=== PATIENT | male | born 1980 | race Caucasian/White ===

== ENCOUNTER 2018-08-03 07:06 | Emergency (ER) | payer SELFPAY ==
[2018-08-03] MEDS ORDERED: FLUORESCEIN SODIUM 1 MG/WRAP ONE (08:25)
[2018-08-03] MEDS ORDERED: TETRACAINE HCL 0.5% 4ML OPTH ONE (08:25)
--- NOTE | 2018-08-03 08:30 | EDPHYS ---
Physician Documentation [facility] Name: Reno Rios Age: 38 yrs Sex: Male : 1980 Arrival Date: 08/03/2018 Time: 07:12 Bed 17 Private MD: None, None ED Physician Damon Torres HPI: 08/03 08:10 This 38 yrs old Male presents to ER via Ambulatory with complaints of Eye cp Pain. 08:10 The patient is experiencing foreign body sensation, pain, to the left eye, caused by cp possible debris. Onset: The symptoms/episode began/occurred yesterday. 08:10 Associated signs and symptoms: Pertinent negatives: ear ache, fever, headache, runny cp nose, drainage from eye. 08:10 Patient does not utilize any form of vision correction. Severity of symptoms: in the cp emergency department the symptoms are unchanged despite home interventions. Historical: - Home Meds: 07:39 None [Active]; ls4 - PMHx: 07:39 Diabetes - NIDDM; Kidney stones; ls4 - PSHx: 07:39 None; ls4 - Immunization history:: Last tetanus immunization: unknown. - Social history:: Smoking status: Patient/guardian denies using tobacco. - Ebola Screening: : Patient negative for fever greater than or equal to 101.5 degrees Fahrenheit, and additional compatible Ebola Virus Disease symptoms Patient denies exposure to infectious person Patient denies travel to an Ebola-affected area in the 21 days before illness onset No symptoms or risks identified at this time. ROS: 08:15 Eyes: Positive for blurry vision, foreign body sensation, pain, Negative for discharge, cp vision loss. 08:15 Constitutional: Negative for body aches, chills, fever, poor PO intake. cp 08:15 ENT: Negative for drainage from ear(s), ear pain, sore throat, difficulty swallowing, difficulty handling secretions. 08:15 Cardiovascular: Negative for chest pain. 08:15 Respiratory: Negative for cough, shortness of breath, wheezing. 08:15 Abdomen/GI: Negative for abdominal pain, nausea, vomiting, and diarrhea. 08:15 Skin: Negative for cellulitis, rash. 08:15 Neuro: Negative for altered mental status, headache, weakness. 08:15 All other systems are negative. Exam: 08:10 Visual Acuity: I have reviewed the nursing documentation. cp 08:20 Constitutional: The patient appears in no acute distress, alert, awake, well developed, cp well nourished. 08:20 Head/Face: Normocephalic, atraumatic. cp 08:20 Eyes: Periorbital structures: appear normal, Pupils: equal, round, and reactive to light and accomodation, Extraocular movements: intact throughout, Conjunctiva: mild erythema of left eye. Corneas: abrasion, is not appreciated, foreign body, is not appreciated, a fluorescein strip employed to appreciate the findings, Sclera: no acute changes, Anterior chamber: normal, Lids and lashes: appear normal, bilaterally, Examination of the other eye reveals no obvious gross abnormality. 08:20 ENT: External ear(s): are unremarkable, Ear canal(s): are normal, clear, TM's: bulging, is not appreciated, bilaterally, dullness, bilaterally, erythema, is not appreciated, bilaterally, Nose: is normal, Mouth: Lips: moist, Oral mucosa: pink and intact, moist, Posterior pharynx: is normal, airway is patent, no erythema, no exudate. 08:20 Neck: ROM/movement: is normal, is supple, without pain, no range of motions limitations, no meningismus, no nuchal rigidity. 08:20 Chest/axilla: Inspection: normal. 08:20 Cardiovascular: Rate: normal. 08:20 Respiratory: the patient does not display signs of respiratory distress, Respirations: normal. 08:20 Skin: cellulitis, is not appreciated, no rash present. Vital Signs: 07:40 BP 115 / 81; Pulse 83; Resp 16; Temp 97.8; Pulse Ox 99% on R/A; Weight 111.13 kg; ls4 Height 6 ft. 3 in. (190.50 cm); Pain 5/10; 07:40 Body Mass Index 30.62 (111.13 kg, 190.50 cm) ls4 Visual Acuity: 08:03 Left Eye Visual acuity 20/20, ; Right Eye Visual acuity 20/15, ; Both Eyes Visual tw2 acuity 20/15; Without Lenses; MDM: 07:55 Patient medically screened. cp 08:10 Differential diagnosis: Corneal abrasion of left eye. Corneal ulcer of left eye. cp Foreign body in left eye. Acute iritis of left eye. Acute glaucoma in left eye. Infectious conjunctivitis in left eye. 08:29 Data reviewed: vital signs, nurses notes, and as a result, I will discharge patient. cp 08:30 Counseling: I had a detailed discussion with the patient and/or guardian regarding: the cp historical points, exam findings, and any diagnostic results supporting the discharge/admit diagnosis, the need for outpatient follow up, an opthalmologist, to return to the emergency department if symptoms worsen or persist or if there are any questions or concerns that arise at home. 08:30 Response to treatment: the patient's symptoms have mildly improved after treatment, and cp as a result, I will discharge patient. 08/03 08:05 Order name: Visual Acuity; Complete Time: 08:07 cp 08/03 08:05 Order name: Eye Tray; Complete Time: 08:07 cp 08/03 08:05 Order name: Fluoresene Opth strip; Complete Time: 08:07 cp Administered Medications: 08:11 Drug: Tetracaine Drops 0.5 % 2 drops Route: Ophthalmic; Site: left eye; tw2 08:33 Not Given (medication unavailable from pharmacy): Tobramycin Drops (0.3 %) 1 drops tw2 Ophthalmic once; instill drops in left eye 08:35 CANCELLED (Duplicate Order): Gentamicin Drops 0.3 % 2 drops Ophthalmic once; 1 drop in tw2 left eye every 4 hours 08:37 Drug: Gentamicin Drops 0.3 % 2 drops Route: Ophthalmic; Site: left eye; tw2 Disposition: 09:00 Chart complete. cp 14:33 Co-signature as Attending Physician, Damon Torres MD I agree with the assessment and kdr plan of care. Disposition: 08/03/18 08:30 Discharged to Home. Impression: Conjunctivitis - left eye. - Condition is Stable. - Prescriptions for Gentamicin 0.3 % Ophthalmic Drops - instill 1 drop by OPHTHALMIC route every 4 hours for 7 days instill 1 drop in left eye every 4 hours while awake for next 5-7 days; 1 bottle. - Medication Reconciliation Form, Thank You Letter, Antibiotic Education, Prescription Opioid Use, Work release form form. - Follow up: Digna Walters MD; When: 1 - 2 days; Reason: Worsening of condition. - Problem is new. - Symptoms have improved. Signatures: Damon Torres MD MD kdr Oral Hunt PA PA cp Sandra Mckinney RN RN tw2 Silva Singer RN RN ls4 Corrections: (The following items were deleted from the chart) 08:35 08:33 Gentamicin Drops 0.3 % 2 drops Ophthalmic once; 1 drop in left eye every 4 hours tw2 ordered. cp 08:45 08:30 08/03/2018 08:30 Discharged to Home. Impression: Conjunctivitis - left eye. tw2 Condition is Stable. Forms are Work release form, Medication Reconciliation Form, Thank You Letter, Antibiotic Education, Prescription Opioid Use. Follow up: Digna Walters; When: 1 - 2 days; Reason: Worsening of condition. Problem is new. Symptoms have improved. cp
--- NOTE | 2018-08-03 08:30 | ER ---
Nurse's Notes [facility] Name: Reno Rios Age: 38 yrs Sex: Male : 1980 Arrival Date: 08/03/2018 Time: 07:12 Bed 17 Private MD: None, None Diagnosis: Conjunctivitis-left eye Presentation: 08/03 07:34 Presenting complaint: Patient states: Left eye pain, while cleaning and moving boxes ls4 over head a lot of debris came down on him. irritated and put ZICAM in eye, but woke up this morning and still very irritated when I look to the right. Transition of care: patient was not received from another setting of care. Mechanism of Injury: moving boxes. The patient denies any loss of vision. Onset of symptoms was August 01, 2018. Risk Assessment: Do you want to hurt yourself or someone else? Patient reports no desire to harm self or others. Initial Sepsis Screen: Does the patient meet any 2 criteria? No. Patient's initial sepsis screen is negative. Does the patient have a suspected source of infection? No. Patient's initial sepsis screen is negative. Care prior to arrival: Medication(s) given: zicam. 07:34 Method Of Arrival: Ambulatory ls4 07:34 Acuity: SCOTTIE 4 ls4 Triage Assessment: 07:39 General: Appears uncomfortable, Behavior is calm, cooperative. Pain: Complains of pain ls4 in left eye Pain currently is 4 out of 10 on a pain scale. Quality of pain is described as irritated. EENT: Eyes mild redness . Sclera/Cornea. Historical: - Home Meds: 07:39 None [Active]; ls4 - PMHx: 07:39 Diabetes - NIDDM; Kidney stones; ls4 - PSHx: 07:39 None; ls4 - Immunization history:: Last tetanus immunization: unknown. - Social history:: Smoking status: Patient/guardian denies using tobacco. - Ebola Screening: : Patient negative for fever greater than or equal to 101.5 degrees Fahrenheit, and additional compatible Ebola Virus Disease symptoms Patient denies exposure to infectious person Patient denies travel to an Ebola-affected area in the 21 days before illness onset No symptoms or risks identified at this time. Screenin:47 Abuse screen: Denies threats or abuse. Nutritional screening: No deficits noted. tw2 Tuberculosis screening: No symptoms or risk factors identified. Fall Risk None identified. Assessment: 08:04 General: Appears in no apparent distress. Behavior is calm, cooperative, appropriate tw2 for age. Pain: Complains of pain in left eye. Neuro: Level of Consciousness is awake, alert, obeys commands, Oriented to person, place, time, situation. Cardiovascular: Patient's skin is warm and dry. Respiratory: Airway is patent Respiratory effort is even, unlabored, Respiratory pattern is regular, symmetrical. EENT: Reports "i feel that there is something in my left eye". 08:45 Reassessment: Patient appears in no apparent distress at this time. No changes from tw2 previously documented assessment. Patient and/or family updated on plan of care and expected duration. Pain level reassessed. Patient is alert, oriented x 3, equal unlabored respirations, skin warm/dry/pink. Vital Signs: 07:40 BP 115 / 81; Pulse 83; Resp 16; Temp 97.8; Pulse Ox 99% on R/A; Weight 111.13 kg; ls4 Height 6 ft. 3 in. (190.50 cm); Pain 5/10; 07:40 Body Mass Index 30.62 (111.13 kg, 190.50 cm) ls4 Visual Acuity: 08:03 Left Eye Visual acuity 20/20, ; Right Eye Visual acuity 20/15, ; Both Eyes Visual tw2 acuity 20/15; Without Lenses; ED Course: 07:12 Patient arrived in ED. mr 07:12 None, None is Private Physician. mr 07:34 Bed in low position. Call light in reach. Pulse ox on. NIBP on. tw2 07:37 Triage completed. ls4 07:42 Oral Hunt PA is PHCP. cp 07:42 Damon Torres MD is Attending Physician. cp 07:46 Sandra Mckinney, JOSE is Primary Nurse. tw2 07:46 Arm band placed on. tw2 08:29 Digna Walters MD is Referral Physician. cp 08:44 No provider procedures requiring assistance completed. Patient did not have IV access tw2 during this emergency room visit. Administered Medications: 08:11 Drug: Tetracaine Drops 0.5 % 2 drops Route: Ophthalmic; Site: left eye; tw2 08:33 Not Given (medication unavailable from pharmacy): Tobramycin Drops (0.3 %) 1 drops tw2 Ophthalmic once; instill drops in left eye 08:35 CANCELLED (Duplicate Order): Gentamicin Drops 0.3 % 2 drops Ophthalmic once; 1 drop in tw2 left eye every 4 hours 08:37 Drug: Gentamicin Drops 0.3 % 2 drops Route: Ophthalmic; Site: left eye; tw2 Outcome: 08:30 Discharge ordered by MD. encinas 08:44 Discharged to home ambulatory. tw 08:44 Condition: stable 08:44 Discharge instructions given to patient, Instructed on discharge instructions, follow up and referral plans. medication usage, Demonstrated understanding of instructions, follow-up care, medications, Prescriptions given X 1. 08:45 Patient left the ED. tw2 Signatures: Mckayla Brink Corey, PA PA cp Wise, Tara, RN RN tw2 Silva Singer RN RN ls4
[2018-08-03] MEDS ORDERED: GENTAMICIN 0.3% OPTH DROP 5ML ONE (08:49)
[2018-08-03 08:51] VITALS: BP 115/81; TEMP 97.8; O2SAT 99
== END 2018-08-03 08:45 | disposition home or self-care (01) ==
LOC: ER 07:06
DX: H10.9 Unspecified conjunctivitis (principal); E11.9 Type 2 diabetes mellitus without complications
CPT/HCPCS: 99283

== ENCOUNTER 2019-02-14 20:15 | Emergency (ER) | payer SELFPAY ==
[2019-02-14] MEDS ORDERED: CLINDAMYCIN 600MG/D5W 0 MG/0 ML BAG IV ONE (21:05)
[2019-02-14] MEDS ORDERED: MORPHINE 4 MG/ML SYR ONE (21:05)
[2019-02-14] MEDS ORDERED: ONDANSETRON 4 MG/2 ML VIAL ONE (21:05)
[2019-02-14] MEDS ORDERED: CLINDAMYCIN IV 150 MG/ML (4 mL) VIAL ONE (21:06)
[2019-02-14] MEDS ORDERED: ONDANSETRON 4 MG (ODT) TAB ONE (21:07)
--- NOTE | 2019-02-14 21:13 | ER ---
Nurse's Notes [facility] Name: Reno Rios Age: 38 yrs Sex: Male : 1980 Arrival Date: 02/14/2019 Time: 20:29 Bed 20 Private MD: Diagnosis: Dental abscess. Diabetes ( Non-complaint ) Presentation: 02/14 20:45 Presenting complaint: Patient states: Pain to right lower jaw radiating to right ear x lp1 1 week, worsening, working with clinic to set up appt for tooth removal; Completed 10 days of Amoxicillin prescription with no relief. Transition of care: patient was not received from another setting of care. Onset of symptoms was February 14, 2019. Risk Assessment: Do you want to hurt yourself or someone else? Patient reports no desire to harm self or others. Initial Sepsis Screen: Does the patient meet any 2 criteria? No. Patient's initial sepsis screen is negative. Does the patient have a suspected source of infection? No. Patient's initial sepsis screen is negative. Care prior to arrival: None. 20:45 Method Of Arrival: Ambulatory lp1 20:45 Acuity: SCOTTIE 4 lp1 Triage Assessment: 20:50 EENT: Reports pain in right jaw. lp1 Historical: - Allergies: 20:48 No Known Allergies; lp1 - Home Meds: 20:48 None [Active]; lp1 - PMHx: 20:48 Kidney stones; lp1 - PSHx: 20:48 None; lp1 - Immunization history:: Adult Immunizations up to date. - Social history:: Smoking status: Patient uses tobacco products, smokes one pack cigarettes per day. - Ebola Screening: : No symptoms or risks identified at this time. Screenin:49 Abuse screen: Denies threats or abuse. Denies injuries from another. Nutritional lp1 screening: No deficits noted. Tuberculosis screening: No symptoms or risk factors identified. Fall Risk None identified. Assessment: 20:48 General: Appears uncomfortable, Behavior is appropriate for age. Pain: Complains of lp1 pain in right jaw Pain currently is 10 out of 10 on a pain scale. Quality of pain is described as pressure, shooting. Neuro: No deficits noted. Cardiovascular: No deficits noted. Respiratory: No deficits noted. GI: No deficits noted. : No deficits noted. EENT: Oral mucosa is moist. Poor dentition noted. Dental caries noted in lower right first bicuspid (#28). Derm: Skin is pink, warm \T\ dry. Musculoskeletal: No deficits noted. 20:55 Reassessment: Patient states no history of diabetes diagnosis. lp1 20:58 Reassessment: Provider verbal order to cancel Ultram order, Order Morphine 4 mg IM, lp1 Zofran 4 mg IM. Vital Signs: 20:47 BP 138 / 93; Pulse 84; Resp 18; Temp 97.8; Pulse Ox 99% on R/A; Weight 111.13 kg (R); lp1 Height 6 ft. 3 in. (190.50 cm); Pain 10/10; 20:47 Body Mass Index 30.62 (111.13 kg, 190.50 cm) lp1 ED Course: 20:29 Patient arrived in ED. cf2 20:41 Fede Rivera MD is Attending Physician. pkl 20:45 Charis Oh, RN is Primary Nurse. lp1 20:46 Triage completed. lp1 20:47 Arm band placed on. lp1 20:49 Patient has correct armband on for positive identification. lp1 21:21 No provider procedures requiring assistance completed. Patient did not have IV access lp1 during this emergency room visit. Administered Medications: 20:59 CANCELLED (Physician Discretion): UltRAM 50 mg PO once; RASS on ADMIN: Combtv4, Very lp1 Agttd3, Agttd2, Rstlss1, AlertClm0, Drwsy-1, Lt Sdtn-2, Mod Sdtn-3, Dp Sdtn-4, UnArsble-5 21:12 Drug: Clindamycin 600 mg Route: IM; Site: left gluteus; lp1 21:22 Follow up: Response: No adverse reaction lp1 21:13 Drug: morphine 4 mg Route: IM; Site: right gluteus; lp1 21:22 Follow up: Response: No adverse reaction; Medication administered at discharge. lp1 21:13 Drug: Zofran 4 mg Route: PO; lp1 21:22 Follow up: Response: No adverse reaction lp1 21:14 CANCELLED (Physician Discretion): Zofran 4 mg IM once lp1 Outcome: 21:12 Discharge ordered by . pkl 21:21 Discharged to home ambulatory, with significant other. lp1 21:21 Condition: good 21:21 Discharge instructions given to patient, Instructed on discharge instructions, follow up and referral plans. medication usage, Demonstrated understanding of instructions, follow-up care, medications, Prescriptions given X 2. 21:24 Patient left the ED. lp1 Signatures: Fede Rivera MD MD pkl Pena, Laura, RN RN lp1 Adam Gamble cf2 Corrections: (The following items were deleted from the chart) 20:56 20:48 PMHx: Diabetes - NIDDM; lp1 lp1
--- NOTE | 2019-02-14 21:14 | EDPHYS ---
Physician Documentation [facility] Name: Reno Rios Age: 38 yrs Sex: Male : 1980 Arrival Date: 02/14/2019 Time: 20:29 Bed 20 Private MD: ED Physician Fede Rivera HPI: 02/14 20:56 This 38 yrs old Male presents to ER via Ambulatory with complaints of pkl Toothache, Headache, Jaw Pain, Facial Swelling. 20:56 The patient presents with pain. The problem is located in the lower right first pkl bicuspid (#28). Onset: The symptoms/episode began/occurred 1 week(s) ago. Saw Dentist 1 week ago and started on Amoxicillin without improvement.. Historical: - Allergies: 20:48 No Known Allergies; lp1 - Home Meds: 20:48 None [Active]; lp1 - PMHx: 20:48 Kidney stones; lp1 - PSHx: 20:48 None; lp1 - Immunization history:: Adult Immunizations up to date. - Social history:: Smoking status: Patient uses tobacco products, smokes one pack cigarettes per day. - Ebola Screening: : No symptoms or risks identified at this time. ROS: 20:56 Eyes: Negative for injury, pain, redness, and discharge. pkl 20:56 ENT: Positive for dental pain. 20:56 Neck: Negative for stiffness. 20:56 Cardiovascular: Negative for chest pain. 20:56 Respiratory: Negative for cough, shortness of breath. 20:56 Abdomen/GI: Negative for abdominal pain, nausea, vomiting, and diarrhea. 20:56 Back: Negative for acute changes. 20:56 : Negative for urinary symptoms. 20:56 MS/extremity: Negative for acute changes. 20:56 Skin: Negative for rash. 20:56 Neuro: Negative for altered mental status. Exam: 20:56 Head/face: Noted is tenderness, that is mild, of the right jaw. pkl 20:56 Eyes: Exam is negative for acute changes. 20:56 ENT: Dental exam: dental caries, that is moderate, gum swelling, that is mild, specifically in the lower right first bicuspid (#28). 20:56 Neck: Exam negative for acute changes. 20:56 Chest/axilla: Exam negative for acute changes. 20:56 Cardiovascular: Rate: normal, Rhythm: regular. 20:56 Respiratory: the patient does not display signs of respiratory distress, Respirations: normal, Breath sounds: are clear throughout. 20:56 Abdomen/GI: Exam negative for acute changes. 20:56 Back: Exam negative for acute changes. 20:56 : Exam negative for acute changes. 20:56 Musculoskeletal/extremity: Exam is negative for acute changes. 20:56 Skin: Exam negative for rash. 20:56 Neuro: Orientation: is normal, Mentation: is normal, Cranial nerves: grossly normal, Motor: is normal. Vital Signs: 20:47 BP 138 / 93; Pulse 84; Resp 18; Temp 97.8; Pulse Ox 99% on R/A; Weight 111.13 kg (R); lp1 Height 6 ft. 3 in. (190.50 cm); Pain 10/10; 20:47 Body Mass Index 30.62 (111.13 kg, 190.50 cm) lp1 MDM: 20:42 Patient medically screened. pkl 20:56 Data reviewed: vital signs, nurses notes. ED course: Patient non-compliant with his [facility] Diabetes control. Said Metformin is not helping. has not been on any Diabetes medications for more than 2 years. Advised to follow up with his PCP this week for his Diabetes management. Patient understood instructions. 02/14 21:06 Order name: Glucose, Ancillary Testing; Complete Time: 21:15 EDMS Administered Medications: 20:59 CANCELLED (Physician Discretion): UltRAM 50 mg PO once; RASS on ADMIN: Combtv4, Very lp1 Agttd3, Agttd2, Rstlss1, AlertClm0, Drwsy-1, Lt Sdtn-2, Mod Sdtn-3, Dp Sdtn-4, UnArsble-5 21:12 Drug: Clindamycin 600 mg Route: IM; Site: left gluteus; lp1 21:22 Follow up: Response: No adverse reaction lp1 21:13 Drug: morphine 4 mg Route: IM; Site: right gluteus; lp1 21:22 Follow up: Response: No adverse reaction; Medication administered at discharge. lp1 21:13 Drug: Zofran 4 mg Route: PO; lp1 21:22 Follow up: Response: No adverse reaction lp1 21:14 CANCELLED (Physician Discretion): Zofran 4 mg IM once lp1 Disposition: 02/14/19 21:12 Discharged to Home. Impression: Dental abscess. Diabetes ( Non-complaint ). - Condition is Stable. - Prescriptions for Clindamycin HCl 300 mg Oral Capsule - take 1 capsule by ORAL route every 6 hours for 7 days; 28 capsule. Ultram 50 mg Oral Tablet - take 1 tablet by ORAL route every 8 hours As needed; 20 tablet. - Medication Reconciliation Form, Thank You Letter, Antibiotic Education, Prescription Opioid Use form. - Follow up: Private Physician; When: 2 - 3 days; Reason: Re-evaluation by your physician. - Problem is new. - Symptoms are unchanged. Signatures: Fede Rivera MD MD pkl Charis Oh RN RN lp1 Corrections: (The following items were deleted from the chart) 20:56 20:48 PMHx: Diabetes - NIDDM; lp1 lp1 20:59 20:55 UltRAM 50 mg PO once; RASS on ADMIN: Combtv4, Very Agttd3, Agttd2, Rstlss1, lp1 AlertClm0, Drwsy-1, Lt Sdtn-2, Mod Sdtn-3, Dp Sdtn-4, UnArsble-5 ordered. pkl 20:59 20:59 UltRAM 50 mg PO once; RASS on ADMIN: Combtv4, Very Agttd3, Agttd2, Rstlss1, lp1 AlertClm0, Drwsy-1, Lt Sdtn-2, Mod Sdtn-3, Dp Sdtn-4, UnArsble-5 ordered. lp1 21:14 20:59 Zofran 4 mg IM once ordered. lp1 lp1 21:14 21:13 Zofran 4 mg IM once ordered. lp1 lp1 21:24 21:12 02/14/2019 21:12 Discharged to Home. Impression: Dental abscess. Diabetes ( lp1 Non-complaint ). Condition is Stable. Forms are Medication Reconciliation Form, Thank You Letter, Antibiotic Education, Prescription Opioid Use. Follow up: Private Physician; When: 2 - 3 days; Reason: Re-evaluation by your physician. Problem is new. Symptoms are unchanged. pkl
[2019-02-14 23:22] VITALS: BP 138/93; TEMP 97.8; O2SAT 99
== END 2019-02-14 21:24 | disposition home or self-care (01) ==
LOC: ER 20:15
DX: K04.7 Periapical abscess without sinus (principal); Z91.19 Patient's noncompliance with other medical treatment and regimen; F17.210 Nicotine dependence, cigarettes, uncomplicated
CPT/HCPCS: 82947; 96372; 99283; J2405; S0077

== ENCOUNTER → 2023-04-28 | Emergency (ER) | payer SELFPAY ==
[~2023-04-28] MED LIST: FENTANYL CITR 100 MCG/2 ML ONE; MORPHINE 4 MG/ML SYR ONE; NA CHLORIDE 0.9% 1,000 ML ONE; NA CHLORIDE 0.9% 100 ML ONE; ONDANSETRON 4 MG/2 ML VIAL ONE; PIPERACIL/TAZO 3.375 GM VIAL IV ONE
--- OUTSIDE RECORDS SUMMARY | 2023-04-28 13:56 | XMS REPORT | Continuity of Care Document ---
Author Name Unknown Address [address] [place] [address] [facility] Address [address] [place] [address] Care Team Providers Care Sap Fico Architect Name Role Phone Unavailable Unavailable Unavailable Encounters Start Date/Time End Date/Time Encounter Type Admission Type Attending Clinicians Care Facility Care Department Encounter ID Source 2023-03-13 18:00:42 Outpatient OSIRIS NEWELL [id number] [facility]
[2023-04-28 14:57] LABS: Specific Gravity > 1.030 (1.005-1.030); Urine Blood Negative (Negative); Urine Clarity Clear (Clear); Urine Color Yellow (Yellow); Urine Glucose 4+ (Over) (Negative); Urine Protein NEGATIVE (Negative); Urine Urobilinogen Normal (Normal)
[2023-04-28 14:59] LABS: Urine Bilirubin 1+ (Negative)
[2023-04-28 15:15] LABS: Albumin 2.7 g/dL (3.4-5.0); Albumin/Globulin Ratio 0.7 (1.1-1.8); Anion Gap 9.6 mEq/L (5.0-15.0); Bilirubin Direct 6.3 mg/dL (0-0.2); Bilirubin Total 7.3 mg/dL (0.2-1.0); Globulin 4.1 g/dL (2.3-3.5); Potassium 3.6 mEq/L (3.5-5.1); Protein, Total 6.8 g/dL (6.4-8.2)
--- NOTE | 2023-04-28 15:37 | RAD REPORT ---
EXAM DESCRIPTION: CTAbdomen Pelvis W Contrast - 04/28/2023 3:27 pm CLINICAL HISTORY: Abdominal pain. abdnormal labs COMPARISON: Abdomen Pelvis W Contrast dated 04/02/2016; Abdomen Pelvis W Contrast dated 6 TECHNIQUE: Biphasic CT imaging of the abdomen and pelvis was performed with 100 ml non-ionic IV cont rast. All CT scans are performed using dose optimization technique as appropriate and may include automated exposure control or mA/KV adjustment according to patient size. FINDINGS: The lung bases are clear. The liver is mildly enlarged with diffuse fatty infiltration. Cholelithiasis. Spleen, pancreas, adren al glands and kidneys are within normal limits. No bowel obstruction, free air, free fluid or abscess. Mild nonspecific fluid distended small bowel. Several small bowel loops in the left upper quadrant are mildly thickened. The appendix is normal. N o evidence of significant lymphadenopathy. No suspicious bony findings. IMPRESSION: Diffuse fatty liver with mild hepatomegaly. Cholelithiasis. Fluid distention is seen throughout the small intestine. Several loops of small bowel are mildly thic kened in the left upper quadrant. This is nonspecific but can be seen in gastrointestinal functional disorders.
[2023-04-28 15:45] LABS: Absolute Basophils 0.1 K/uL (0-0.5); Absolute Eosinophils 0.2 K/uL (0-0.5); Absolute Lymphocytes (CBC) 1.3 K/uL (0.7-4.9); Basophils % 1.6 % (0-1.3); Eosinophils % 3.8 % (0-4.4); Hematocrit 42.4 % (39.6-49.0); Hemoglobin 14.1 g/dL (13.6-17.9); Lymphocytes % 19.9 % (15.3-44.8); MCV 70.2 fL (80-100); MPV 8.9 fL (7.6-11.3); Platelets 293 thou/uL (152-406); RBC Red Blood Cell Count 6.05 M/uL (4.33-5.43)
[2023-04-28 17:22] LABS: Platelet Estimate ADEQ; White Blood Cell Scan OK (OK)
[2023-04-28 17:23] LABS: Blood Morphology Comment NOTED (NOT SEEN)
[2023-04-28 17:25] LABS: Anisocytosis 2+; Poikilocytosis 1+; Target Cells 1+
--- NOTE | 2023-04-28 18:39 | RAD REPORT ---
EXAM DESCRIPTION: US - Abdomen Exam Limited - 04/28/2023 6:10 pm CLINICAL HISTORY: pain Abdominal pain COMPARISON: No comparisons FINDINGS: The gallbladder demonstrates multiple shadowing gallstones. No pericholecystic fluid or ga llbladder wall thickening. The common bile duct is normal measuring 2 mm. The liver demonstrates no findings of intrahepatic biliary dilatation. IMPRESSION: Cholelithiasis.
--- NOTE | 2023-04-28 19:27 | EDPHYS ---
Physician Documentation [facility] Name: Reno Rios Age: 43 yrs Sex: Male : 1980 Arrival Date: 04/28/2023 Time: 13:54 Bed 5 Private MD: Michaela Victoria ED Physician Neftali Santo HPI: 04/27 15:30 This 43 yrs old Male presents to ER via Ambulatory with complaints of Abnormal Lab rt Results. 15:30 Patient presents to the ED with reported abnormalities on LFTs as well as kidney rt function on outpatient labs. Has been increasingly jaundiced over the past several days. Reports dark urine, reportedly pale stools. Does report pain to the lower back. Denies any overt abdominal pain. Denies other acute complaints at this time, symptoms are moderate in severity, no other aggravating or alleviating factors.. Historical: - Allergies: 14:12 No Known Allergies; ld1 - Home Meds: 14:12 None [Active]; ld1 - PMHx: 14:12 Kidney stones; Diabetes mellitus; ld1 - PSHx: 14:12 None; ld1 - Immunization history:: Adult Immunizations up to date. - Social history:: Smoking status: Reported history of juuling and/or vaping. Patient/guardian denies using alcohol. - Family history:: not pertinent. ROS: 15:30 Constitutional: Negative for fever, chills, and weight loss, Cardiovascular: Negative rt for chest pain, palpitations, and edema, Respiratory: Negative for shortness of breath, cough, wheezing, and pleuritic chest pain, Abdomen/GI: Negative for abdominal pain, nausea, vomiting, diarrhea, and constipation, MS/Extremity: Negative for injury and deformity, Neuro: Negative for headache, weakness, numbness, tingling, and seizure, Psych: Negative for depression, anxiety, suicide ideation, homicidal ideation, and hallucinations, 15:30 Skin: Positive for jaundice, Negative for cellulitis, Exam: 15:30 Constitutional: This is a well developed, well nourished patient who is awake, alert, rt and in no acute distress. Head/Face: Normocephalic, atraumatic. Chest/axilla: Normal chest wall appearance and motion. Nontender with no deformity. No lesions are appreciated. Cardiovascular: Regular rate and rhythm with a normal S1 and S2. No gallops, murmurs, or rubs. Normal PMI, no JVD. No pulse deficits. Respiratory: Lungs have equal breath sounds bilaterally, clear to auscultation and percussion. No rales, rhonchi or wheezes noted. No increased work of breathing, no retractions or nasal flaring. Abdomen/GI: Soft, non-tender, with normal bowel sounds. No distension or tympany. No guarding or rebound. No evidence of tenderness throughout. Neuro: Awake and alert, GCS 15, oriented to person, place, time, and situation. Cranial nerves II-XII grossly intact. Motor strength 5/5 in all extremities. Sensory grossly intact. Cerebellar exam normal. Normal gait. 15:30 Eyes: Scleral icterus noted. 15:30 Skin: Mild jaundice noted. Vital Signs: 14:11 BP 154 / 85; Pulse 92; Resp 14; Temp 98.3(TE); Pulse Ox 99% on R/A; Weight 100.7 kg; ld1 Height 6 ft. 3 in. ; Pain 9/10; 15:30 BP 157 / 97; Pulse 84; Resp 18; Pulse Ox 100% ; Pain 3/10; nj1 16:46 BP 158 / 93; Pulse 83; Resp 16; Pulse Ox 100% on R/A; nj1 18:27 BP 160 / 95; Pulse 83; Resp 16; Pulse Ox 100% ; Pain 7/10; nj1 19:00 BP 159 / 98; Pulse 91; Resp 16; Pulse Ox 100% on R/A; km8 21:48 BP 158 / 97; Pulse 97; Resp 15; Temp 98.4(TE); Pulse Ox 99% on R/A; Pain 9/10; tm6 14:11 Body Mass Index 27.75 (100.70 kg, 190.5 cm) ld1 14:11 Pain Scale: Adult ld1 15:30 Pain Scale: Adult nj1 18:27 Pain Scale: Adult nj1 21:48 Pain Scale: Adult tm6 MDM: 14:11 Patient medically screened. rt 20:21 Differential Diagnosis Hyperbilirubinemia, choledocholithiasis, cholecystitis. Data rt reviewed: vital signs, nurses notes, lab test result(s), radiologic studies. Management of patient was discussed with the following: Dish Up Person: Discussed with Dr. Wu with general surgery, recommends admission.. I considered the following discharge prescriptions or medication management in the emergency department Medications were administered in the Emergency Department. See MAR. Independent interpretation of the following test(s) in the Emergency Department CT Scan: My interpretation is No bowel obstruction syndrome interpretation of CT scan images. Care significantly affected by the following chronic conditions: Diabetes. Counseling: I had a detailed discussion with the patient and/or guardian regarding the historical points, exam findings, and any diagnostic results supporting the discharge/admit diagnosis, lab results, radiology results, the need to transfer to another facility. Response to treatment: the patient's symptoms have mildly improved after treatment. 04/27 14:57 Order name: Urinalysis w/ reflexes; Complete Time: 15:19 EDMS 04/27 15:15 Order name: Basic Metabolic Panel; Complete Time: 15:19 EDMS 04/27 15:15 Order name: Liver (Hepatic) Function; Complete Time: 15:19 EDMS 04/27 15:15 Order name: Magnesium; Complete Time: 15:19 EDMS 04/27 15:15 Order name: Lipase; Complete Time: 15:19 EDMS 04/27 15:45 Order name: CBC with Automated Diff; Complete Time: 17:29 EDMS 04/27 17:25 Order name: CBC Smear Scan; Complete Time: 17:29 EDMS 04/27 14:25 Order name: CT Abd/Pelvis - IV Contrast Only rt 04/27 15:37 Order name: CT; Complete Time: 16:06 EDMS 04/27 16:07 Order name: US Abdomen Limited rt 04/27 18:08 Order name: Abdomen Exam Limited; Complete Time: 18:45 EDMS 04/27 14:25 Order name: IV Saline Lock; Complete Time: 14:53 rt 04/27 14:25 Order name: Labs collected and sent; Complete Time: 14:53 rt Administered Medications: 14:45 Drug: NS 0.9% IV 1000 ml IV at 1 bolus Per protocol; 1000 mL bolus Route: IV; Rate: 1 nj1 bolus; Site: right antecubital; 19:49 Follow up: IV Status: Completed infusion; IV Intake: 1000ml km8 14:45 Drug: Ondansetron IVP 4 mg IVP once; over 2 minutes Route: IVP; Site: right antecubital;nj1 19:49 Follow up: Response: No adverse reaction km8 14:47 Drug: morphine IVP or IV 4 mg IVP once over 4 mins Route: IVP; Infused Over: 4 mins; in1 Site: right antecubital; 19:49 Follow up: Response: No adverse reaction 8 16:42 Drug: morphine IVP or IV 4 mg IVP once over 4 mins Route: IVP; Infused Over: 4 mins; [facility] Site: right antecubital; 18:26 Follow up: Response: No adverse reaction; Pain is decreased [facility] 18:50 Drug: morphine IVP or IV 4 mg IVP once over 4 mins Route: IVP; Infused Over: 4 mins; [facility] Site: right antecubital; 19:48 Follow up: Response: No adverse reaction; Pain is decreased [facility] 19:48 Drug: Piperacillin-Tazobactam IVPB 3.375 grams IVPB once over 60 mins; (mix in NS 100 km8 mL) Route: IVPB; Infused Over: 60 mins; Site: right antecubital; 21:29 Drug: fentaNYL (PF) IVP 50 mcg IVP once Route: IVP; Site: right antecubital; tm6 21:30 Drug: Ondansetron IVP 4 mg IVP once; over 2 minutes Route: IVP; Site: right antecubital;tm6 21:48 Drug: fentaNYL (PF) IVP 50 mcg IVP once Route: IVP; Site: right antecubital; tm6 Disposition Summary: 04/28/23 19:27 Transfer Ordered Notes: Transfer Location: [facility] rt Reason: Higher level of care rt Condition: Stable rt Problem: new rt Symptoms: are unchanged rt Accepting Physician: (04/28/23 21:51) tm6 Diagnosis - Cholecystitis rt - Hyperbilirubinemia rt Forms: - Medication Reconciliation Form rt - SBAR form rt Signatures: Dispatcher [employer] Katlyn Oviedo RN RN ld1 Neftali Santo MD MD rt Prieto Ariza MD MD sp4 Jania Zaidi RN RN nj1 Zoe Shetty RN RN km8 Violet Estrada RN RN tm6 Corrections: (The following items were deleted from the chart) 18:11 17:10 CBC+H.LAB.BRZ ordered. EDMS EDMS 18:11 17:10 BASIC METABOLIC PANEL+C.LAB.BRZ ordered. EDMS EDMS 18:12 17:10 LIPASE+C.LAB.BRZ ordered. EDMS EDMS 18:12 17:10 Urinalysis+U.LAB.BRZ ordered. EDMS EDMS 18:12 17:10 HEPATIC FUNCTION+C.LAB.BRZ ordered. EDMS EDMS 18:12 17:10 MAGNESIUM+C.LAB.BRZ ordered. EDMS EDMS 21:51 19:27 Dr. youssef tm6
--- NOTE | 2023-04-28 19:27 | ER ---
Nurse's Notes [facility] Name: Reno Rios Age: 43 yrs Sex: Male : 1980 Arrival Date: 04/28/2023 Time: 13:54 Bed 5 Private MD: Michaela Victoria Diagnosis: Cholecystitis;Hyperbilirubinemia Presentation: 04/27 14:11 Chief complaint: Patient states: Came in due to elevated liver enzymes and BGL. Flank ld1 pain, nausea X 1 week. 20lb weight loss since March. Coronavirus screen: At this time, the client does not indicate any symptoms associated with coronavirus-19. Ebola Screen: No symptoms or risks identified at this time. Initial Sepsis Screen: Does the patient meet any 2 criteria? No. Patient's initial sepsis screen is negative. Does the patient have a suspected source of infection? No. Patient's initial sepsis screen is negative. Risk Assessment: Do you want to hurt yourself or someone else? Patient reports no desire to harm self or others. Onset of symptoms was April 28, 2023. 14:11 Method Of Arrival: Ambulatory ld1 14:11 Acuity: SCOTTIE 3 ld1 Triage Assessment: 14:12 General: Appears in no apparent distress. comfortable, Behavior is cooperative, ld1 anxious. Pain:. Pain: Complains of pain in low back area Pain does not radiate. Pain currently is 9 out of 10 on a pain scale. Quality of pain is described as throbbing. EENT: No signs and/or symptoms were reported regarding the EENT system. Neuro: Level of Consciousness is awake, alert, obeys commands, Oriented to person, place, time, situation. Cardiovascular: Capillary refill < 3 seconds Patient's skin is warm and dry. Respiratory: Airway is patent Respiratory effort is even, unlabored. GI: Abdomen is round non-distended, Reports nausea. : Reports pain in bilateral flank(s). Historical: - Allergies: 14:12 No Known Allergies; ld1 - Home Meds: 14:12 None [Active]; ld1 - PMHx: 14:12 Kidney stones; Diabetes mellitus; ld1 - PSHx: 14:12 None; ld1 - Immunization history:: Adult Immunizations up to date. - Social history:: Smoking status: Reported history of juuling and/or vaping. Patient/guardian denies using alcohol. - Family history:: not pertinent. Screenin:56 [facility] ED Fall Risk Assessment (Adult) Score/Fall Risk Level 0 - 2 = Low Risk nj1 Oriented to surroundings, Maintained a safe environment, Hourly rounding (assess needs \T\ fall precautionary measures) done. Abuse screen: Denies threats or abuse. Denies injuries from another. Nutritional screening: No deficits noted. Tuberculosis screening: No symptoms or risk factors identified. Assessment: 14:40 General: Appears in no apparent distress. comfortable, Behavior is calm, cooperative, nj1 appropriate for age. Pain: Complains of pain in flank, left Pain radiates to back Pain currently is 8 out of 10 on a pain scale. 14:40 Pain: Pain began 4 days ago. Neuro: Level of Consciousness is awake, alert, obeys nj1 commands, Oriented to person, place, time, situation. Cardiovascular: Patient's skin is warm and dry. Respiratory: Airway is patent Respiratory effort is even, unlabored. EENT: Sclera/Cornea Yellowish. Derm: Skin is. Derm: Skin is jaundiced. 15:30 Reassessment: Patient appears in no apparent distress at this time. Patient and/or nj1 family updated on plan of care and expected duration. Pain level reassessed. Patient is alert, oriented x 3, equal unlabored respirations, skin warm/dry/pink. 15:50 Reassessment: Ice chips given to patient, ok by Dr Santo. nj1 16:45 Reassessment: Patient appears in no apparent distress at this time. Patient and/or nj1 family updated on plan of care and expected duration. Pain level reassessed. Patient is alert, oriented x 3, equal unlabored respirations, skin warm/dry/pink. 18:27 Reassessment: Patient appears in no apparent distress at this time. Patient and/or nj1 family updated on plan of care and expected duration. Pain level reassessed. Patient is alert, oriented x 3, equal unlabored respirations, skin warm/dry/pink. 19:15 Reassessment: Patient appears in no apparent distress at this time. Patient and/or km8 family updated on plan of care and expected duration. Pain level reassessed. General: Appears comfortable, Behavior is calm, cooperative, appropriate for age. Neuro: Level of Consciousness is awake, alert, obeys commands, Oriented to person, place, time, situation. Cardiovascular: Denies chest pain, shortness of breath, Patient's skin is warm and dry. Respiratory: Airway is patent Respiratory effort is even, unlabored, Respiratory pattern is regular, symmetrical. 21:18 Reassessment: called report to RN at [facility]. km8 21:48 Reassessment: Patient appears in no apparent distress at this time. Patient and/or tm6 family updated on plan of care and expected duration. Pain level reassessed. Patient is alert, oriented x 3, equal unlabored respirations, skin warm/dry/pink. Vital Signs: 14:11 BP 154 / 85; Pulse 92; Resp 14; Temp 98.3(TE); Pulse Ox 99% on R/A; Weight 100.7 kg; ld1 Height 6 ft. 3 in. ; Pain 9/10; 15:30 BP 157 / 97; Pulse 84; Resp 18; Pulse Ox 100% ; Pain 3/10; nj1 16:46 BP 158 / 93; Pulse 83; Resp 16; Pulse Ox 100% on R/A; nj1 18:27 BP 160 / 95; Pulse 83; Resp 16; Pulse Ox 100% ; Pain 7/10; nj1 19:00 BP 159 / 98; Pulse 91; Resp 16; Pulse Ox 100% on R/A; km8 21:48 BP 158 / 97; Pulse 97; Resp 15; Temp 98.4(TE); Pulse Ox 99% on R/A; Pain 9/10; tm6 14:11 Body Mass Index 27.75 (100.70 kg, 190.5 cm) ld1 14:11 Pain Scale: Adult ld1 15:30 Pain Scale: Adult nj1 18:27 Pain Scale: Adult nj1 21:48 Pain Scale: Adult tm6 ED Course: 13:55 Patient arrived in ED. mr 13:56 Michaela Victoria is Private Physician. mr 13:59 Neftali Santo MD is Attending Physician. rt 14:11 Jania Zaidi, JOSE is Primary Nurse. nj1 14:12 Triage completed. ld1 14:12 Arm band placed on right wrist. Patient placed in an exam room, on a stretcher, on ld1 senior clinical study manager, on pulse oximetry. 14:40 Patient has correct armband on for positive identification. Bed in low position. Call nj1 light in reach. Adult w/ patient. 14:40 Provided Education on: call light, fall precautions. wv1 18:12 Abdomen Exam Limited In Process Unspecified. EDMS 19:07 Report given to Zoe RN and Violet RN. [facility] 19:15 Zoe Shetty, RN is Primary Nurse. [facility] 19:[address] [facility], spoke with Kamla. 21:05 EMS stated they couldn't be here till 2229, will call another transport service. 21:05 [facility] accepted for transport with an ETA \T\ 2134. 21:50 No provider procedures requiring assistance completed. Inserted saline lock: 22 gauge tm6 in right antecubital area, using aseptic technique. Patient transferred, IV remains in place. Administered Medications: 14:45 Drug: NS 0.9% IV 1000 ml IV at 1 bolus Per protocol; 1000 mL bolus Route: IV; Rate: 1 nj1 bolus; Site: right antecubital; 19:49 Follow up: IV Status: Completed infusion; IV Intake: 1000ml [facility] 14:45 Drug: Ondansetron IVP 4 mg IVP once; over 2 minutes Route: IVP; Site: right antecubital;nj1 19:49 Follow up: Response: No adverse reaction [facility] 14:47 Drug: morphine IVP or IV 4 mg IVP once over 4 mins Route: IVP; Infused Over: 4 mins; [facility] Site: right antecubital; 19:49 Follow up: Response: No adverse reaction [facility] 16:42 Drug: morphine IVP or IV 4 mg IVP once over 4 mins Route: IVP; Infused Over: 4 mins; [facility] Site: right antecubital; 18:26 Follow up: Response: No adverse reaction; Pain is decreased [facility] 18:50 Drug: morphine IVP or IV 4 mg IVP once over 4 mins Route: IVP; Infused Over: 4 mins; [facility] Site: right antecubital; 19:48 Follow up: Response: No adverse reaction; Pain is decreased [facility] 19:48 Drug: Piperacillin-Tazobactam IVPB 3.375 grams IVPB once over 60 mins; (mix in NS 100 km8 mL) Route: IVPB; Infused Over: 60 mins; Site: right antecubital; 21:29 Drug: fentaNYL (PF) IVP 50 mcg IVP once Route: IVP; Site: right antecubital; tm6 21:30 Drug: Ondansetron IVP 4 mg IVP once; over 2 minutes Route: IVP; Site: right antecubital;tm6 21:48 Drug: fentaNYL (PF) IVP 50 mcg IVP once Route: IVP; Site: right antecubital; tm6 Medication: 21:50 VIS not applicable for this client. tm6 Intake: 19:49 IV: 1000ml; Total: 1000ml. km8 Outcome: 19:27 ER care complete, transfer ordered by . rt 21:50 Transferred by ground EMS to [facility], tm6 21:50 Condition: stable 21:50 Instructed on the need for transfer, Demonstrated understanding of instructions, 21:51 Patient left the ED. tm6 Signatures: Dispatcher [employer] EDMS Mckayla Brink, Luis Reg mr Katlyn Benitez, RN RN ld1 Katherin Lockwood Ryan, MD MD rt Jania Zaidi RN RN nj1 Zoe Shetty RN RN km8 Violet Estrada RN RN tm6
[2023-04-28 22:52] VITALS: BP 158/97; TEMP 98.4; O2SAT 99
== END ==
LOC: ER 13:54
DX: K81.9 Cholecystitis, unspecified (principal); E80.6 Other disorders of bilirubin metabolism
CPT/HCPCS: 36415; 74177; 76705; 80048; 80076; 81003; 83690; 83735; 85025; J2405; J2543; J3010; J7030; Q9967

== ENCOUNTER 2023-08-26 18:23 | Emergency (ER) | payer SELFPAY ==
--- NOTE | 2023-08-26 19:06 | ER ---
Nurse's Notes [facility] Name: Reno Rios Age: 43 yrs Sex: Male : 1980 Arrival Date: 08/26/2023 Time: 18:23 Bed DX3 Private MD: Diagnosis: Dental caries, unspecified;Cellulitis of face Presentation: 08/25 18:58 Chief complaint: Patient states: Pt states he has broken tooth on left lower jaw since tl4 Thursday. Pain and swelling is getting worse. Coronavirus screen: At this time, the client does not indicate any symptoms associated with coronavirus-19. Ebola Screen: No symptoms or risks identified at this time. Initial Sepsis Screen: Does the patient meet any 2 criteria? No. Patient's initial sepsis screen is negative. Does the patient have a suspected source of infection? No. Patient's initial sepsis screen is negative. Risk Assessment: Do you want to hurt yourself or someone else? Patient reports no desire to harm self or others. Onset of symptoms was August 22, 2023. 18:58 Method Of Arrival: Ambulatory tl4 18:58 Acuity: SCOTTIE 4 tl4 Triage Assessment: 19:00 General: Appears uncomfortable, Behavior is calm, cooperative. Pain: Complains of pain tl4 in mouth. EENT: Reports pain in left cheek. Neuro: Level of Consciousness is awake, alert, obeys commands, Oriented to person, place, time, situation. Cardiovascular: Capillary refill < 3 seconds Patient's skin is warm and dry. Respiratory: Airway is patent Respiratory effort is even, unlabored, Respiratory pattern is regular, symmetrical. GI: No signs and/or symptoms were reported involving the gastrointestinal system. : No signs and/or symptoms were reported regarding the genitourinary system. Derm: No signs and/or symptoms reported regarding the dermatologic system. Musculoskeletal: No signs and/or symptoms reported regarding the musculoskeletal system. Historical: - Allergies: 19:01 No Known Allergies; tl4 - PMHx: 19:01 diabetes mellitus; Kidney stones; tl4 - PSHx: 19:01 Cholecystectomy; tl4 - Immunization history:: Adult Immunizations unknown. - Infectious Disease History:: Denies. - Social history:: Smoking status: Patient denies any tobacco usage or history of. - Family history:: not pertinent. - Hospitalizations: : No recent hospitalization is reported. Screenin:24 [facility] ED Fall Risk Assessment (Adult) History of falling in the last 3 months, bm8 including since admission No falls in past 3 months (0 pts) Confusion or Disorientation No (0 pts) Intoxicated or Sedated No (0 pts) Impaired Gait No (0 pts) Mobility Assist Device Used No (0 pt) Altered Elimination No (0 pt) Score/Fall Risk Level 0 - 2 = Low Risk Oriented to surroundings, Maintained a safe environment, Educated pt \T\ family on fall prevention, incl call for assistance when getting out of bed, Assessed \T\ reinforced patient's understanding of fall precautions, Hourly rounding (assess needs \T\ fall precautionary measures) done. Abuse screen: Denies threats or abuse. Nutritional screening: No deficits noted. Tuberculosis screening: No symptoms or risk factors identified. Assessment: 20:24 Pain: Complains of pain in left cheek and mouth Pain radiates to face. Neuro: No bm8 deficits noted. Level of Consciousness is awake, alert, obeys commands, Oriented to person, place, time, situation, Appropriate for age. Musculoskeletal: swelling to left cheek. Vital Signs: 18:58 BP 146 / 82; Pulse 103; Resp 18; Temp 97(TE); Pulse Ox 100% on R/A; Weight 90.72 kg; tl4 Height 6 ft. 3 in. ; Pain 10/10; 20:24 BP 140 / 80; Pulse 100; Resp 20; Temp 97; Pulse Ox 100% ; Pain 6/10; bm8 18:58 Body Mass Index 25.00 (90.72 kg, 190.5 cm) tl4 18:58 Pain Scale: Adult tl4 20:24 Pain Scale: Adult bm8 [place] Coma Score: 20:24 Eye Response: spontaneous(4). Motor Response: obeys commands(6). Verbal Response: bm8 oriented(5). Total: 15. ED Course: 18:26 Patient arrived in ED. im 18:39 Lloyd Lemons MD is Attending Physician. rn 19:00 Triage completed. tl4 19:03 Arm band placed on right wrist. tl4 20:23 Gabe Sumner, RN is Primary Nurse. bm8 20:24 Patient has correct armband on for positive identification. Provided Education on: post bm8 er care. Client placed on continuous cardiac and pulse oximetry monitoring. NIBP monitoring applied. Pulse ox on. NIBP on. Verbal reassurance given. 20:24 No provider procedures requiring assistance completed. Patient did not have IV access bm8 during this emergency room visit. Administered Medications: 20:00 Drug: Ketorolac IM 30 mg IM once Route: IM; Site: left deltoid; bm8 20:27 Follow up: Response: No adverse reaction bm8 20:00 Drug: HYDROcodone-acetaminophen PO 5 mg-325 mg 1 tabs PO once Route: PO; bm8 20:27 Follow up: Response: No adverse reaction bm8 20:00 Drug: Clindamycin PO 300 mg PO once Route: PO; bm8 20:26 Follow up: Response: No adverse reaction bm8 Medication: 20:24 VIS not applicable for this client. bm8 Outcome: 19:05 Discharge ordered by . rn 20:24 Discharged to home ambulatory, bm8 20:24 Condition: stable 20:24 Discharge instructions given to patient, Instructed on discharge instructions, follow up and referral plans. no drinking with medication, no driving heavy equipment, medication usage, safety practices, Demonstrated understanding of instructions, follow-up care, medications, Prescriptions given X 3, 20:27 Patient left the ED. bm8 Signatures: Lloyd Lemons MD MD rn Mendoza, Itzel im Logdahl, Toni, RN RN tl4 Gabe Sumner RN RN bm8 Corrections: (The following items were deleted from the chart) 19:03 18:58 BP 146 / 82; Pulse 103bpm; Resp 18bpm; Pulse Ox 100% RA; Temp 97F Temporal; Pain tl4 11/25, Adult; tl4
--- NOTE | 2023-08-26 19:06 | EDPHYS ---
Physician Documentation [facility] Name: Reno Rios Age: 43 yrs Sex: Male : 1980 Arrival Date: 08/26/2023 Time: 18:23 Bed DX3 Private MD: ED Physician Lloyd Lemons HPI: 08/25 19:04 This 43 yrs old Male presents to ER via Ambulatory with complaints of Toothache. rn 19:04 The patient presents with pain, swelling. Onset: The symptoms/episode began/occurred 2 rn day(s) ago. Modifying factors: The symptoms are alleviated by nothing, the symptoms are aggravated by chewing. Severity of symptoms: At their worst the symptoms were mild, in the emergency department the symptoms are unchanged. The patient has not experienced similar symptoms in the past. Patient reports dental pain for a while now but last few days noticed swelling to the left jaw and pain has increased. No fever or chills. Able to eat.. Historical: - Allergies: 19:01 No Known Allergies; tl4 - PMHx: 19:01 diabetes mellitus; Kidney stones; tl4 - PSHx: 19:01 Cholecystectomy; tl4 - Immunization history:: Adult Immunizations unknown. - Infectious Disease History:: Denies. - Social history:: Smoking status: Patient denies any tobacco usage or history of. - Family history:: not pertinent. - Hospitalizations: : No recent hospitalization is reported. ROS: 19:04 Constitutional: Negative for fever, chills, and weight loss, ENT: Positive for dental rn pain and swelling Exam: 19:04 Constitutional: This is a well developed, well nourished patient who is awake, alert, rn and in no acute distress. ENT: Poor dentition, left lower teeth along mandible with multiple dental caries, no obvious abscess, mild swelling to buccal space without fluctuance or abscess. Vital Signs: 18:58 BP 146 / 82; Pulse 103; Resp 18; Temp 97(TE); Pulse Ox 100% on R/A; Weight 90.72 kg; tl4 Height 6 ft. 3 in. ; Pain 10/10; 20:24 BP 140 / 80; Pulse 100; Resp 20; Temp 97; Pulse Ox 100% ; Pain 6/10; bm8 18:58 Body Mass Index 25.00 (90.72 kg, 190.5 cm) tl4 18:58 Pain Scale: Adult tl4 20:24 Pain Scale: Adult bm8 [place] Coma Score: 20:24 Eye Response: spontaneous(4). Motor Response: obeys commands(6). Verbal Response: bm8 oriented(5). Total: 15. MDM: 18:39 Patient medically screened. rn 19:04 Differential diagnosis: dental caries, dental abscess. Data reviewed: vital signs, rn nurses notes, and as a result, I will discharge patient. Counseling: I had a detailed discussion with the patient and/or guardian regarding the historical points, exam findings, and any diagnostic results supporting the discharge/admit diagnosis, the need for outpatient follow up, to return to the emergency department if symptoms worsen or persist or if there are any questions or concerns that arise at home. Special discussion: I discussed with the patient/guardian in detail that at this point there is no indication for admission to the hospital. It is understood, however, that if the symptoms persist or worsen the patient needs to return immediately for re-evaluation. Administered Medications: 20:00 Drug: Ketorolac IM 30 mg IM once Route: IM; Site: left deltoid; bm8 20:27 Follow up: Response: No adverse reaction bm8 20:00 Drug: HYDROcodone-acetaminophen PO 5 mg-325 mg 1 tabs PO once Route: PO; bm8 20:27 Follow up: Response: No adverse reaction bm8 20:00 Drug: Clindamycin PO 300 mg PO once Route: PO; bm8 20:26 Follow up: Response: No adverse reaction bm8 Disposition Summary: 08/26/23 19:05 Discharge Ordered Notes: Location: Home rn Problem: new rn Symptoms: are unchanged rn Condition: Stable rn Diagnosis - Dental caries, unspecified rn - Cellulitis of face rn Followup: rn - With: Private Physician - When: As needed - Reason: Recheck today's complaints, Re-evaluation by your physician Discharge Instructions: - Discharge Summary Sheet rn - Cellulitis, Adult rn - Dental Caries, Adult rn - Dental Pain rn Forms: - Medication Reconciliation Form rn - Antibiotic fingernail technician - Prescription Opioid Use rn - Patient Portal Instructions rn - Leadership Thank You Letter rn Prescriptions: - Clindamycin HCl 300 mg Oral Capsule - take 1 capsule ORAL route every 6 hours for 10 days; 40 capsule; Refills: 0, rn Product Selection Permitted - Ibuprofen 800 mg Oral Tablet - take 1 tablet ORAL route every 12 hours As needed take with food; 20 tablet; rn Refills: 0, Product Selection Permitted - Tramadol 50 mg Oral Tablet - take 1 tablet ORAL route every 8 hours as needed; 12 tablet; Refills: 0, rn Product Selection Permitted Signatures: Lloyd Lemons MD MD rn Lauro Gomez RN RN tl4 Gabe Sumner RN RN bm8
[2023-08-26] MEDS ORDERED: KETOROLAC 30 MG/ML INJ ONE (20:12)
[2023-08-26] MEDS ORDERED: HYDROCODONE/APAP 5/325 MG TAB ONE (20:13)
[2023-08-27 02:09] VITALS: BP 140/80; TEMP 97; O2SAT 100
== END 2023-08-26 20:27 | disposition home or self-care (01) ==
LOC: ER 18:23
DX: K02.9 Dental caries, unspecified (principal); L03.211 Cellulitis of face
CPT/HCPCS: 96372; 99284